=== PATIENT | female | born 2000 | race Caucasian/White ===

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

== ENCOUNTER 2023-02-14 14:02 | Emergency (ER) | payer OTHER | END 2023-02-14 14:40 | disposition home or self-care (01) | LOC: CSHERS 14:02 | DX: T23.111A Burn of first degree of right thumb (nail), initial encounter (principal); F17.210 Nicotine dependence, cigarettes, uncomplicated; Y93.G3 Activity, cooking and baking | CPT/HCPCS: 99283 ==